=== PATIENT | female | born 1970 | race Caucasian/White ===

== ENCOUNTER 2023-10-23 17:13 | Inpatient (IN) | payer BC, OTHER ==
[~2023-10-23] VITALS: Ht 160 cm; Wt 83.5 kg
[~2023-10-23 17:13] MED LIST: ALLEGRA D; AMOX-423 PO; ASPI-524 PO; ATEN50TA PO; HYDR-3919 PO; LOSA-415 PO; TRIA1CAP53 PO
[2023-10-23 17:24] VITALS: BP_SYST 127; PULSE 74; RESP 18; TEMP 98.3; O2SAT 98
[2023-10-23 19:43] LABS: BASOPHILS % (AUTO) 0.5 % (0.0-2.0); EOSINOPHILS # (AUTO) 0.2 K/uL (0.0-0.4); EOSINOPHILS % (AUTO) 2.4 % (0.0-4.0); HEMATOCRIT 36.3 % (36-48); HEMOGLOBIN 12.8 g/dL (12.0-16.0); LYMPHOCYTES # (AUTO) 3.1 K/uL (1.0-5.5); LYMPHOCYTES % (AUTO) 30.4 % (20.5-51.5); MEAN CORPUSCULAR HEMOGLOBIN 32 pg (27-31); MEAN CORPUSCULAR HGB CONC 35 % (32-36); MEAN CORPUSCULAR VOLUME 90 fL (79.0-98.0); MONOCYTES # (AUTO) 0.9 K/uL (0.0-1.0); MONOCYTES % (AUTO) 9.3 % (1.7-9.3); NEUTROPHILS # (AUTO) 5.9 K/uL (1.8-7.7); NEUTROPHILS % (AUTO) 57.4 % (40.0-70.0); PLATELET COUNT (AUTO) 278 K/uL (130-430); RED BLOOD CELL COUNT(AUTO) 4.02 MIL/uL (4.2-6.2); RED CELL DISTRIBUTION WIDTH 12.5 % (9.0-15.0); WHITE BLOOD COUNT (AUTO) 10.2 K/uL (4.8-10.8)
[2023-10-23 20:07] LABS: ALBUMIN 3.8 g/dL (3.4-4.8); BILIRUBIN,DIRECT 0.2 mg/dL (0.0-0.3); CALCIUM 9.3 mg/dL (8.4-11.0); CREATININE 2.56 mg/dL (0.55-1.30); POTASSIUM 3.6 mmol/L (3.5-5.1); TOTAL BILIRUBIN 0.6 mg/dL (0.0-1.0); TOTAL PROTEIN, SERUM 7.1 g/dL (6.4-8.3)
[2023-10-23 20:58] LABS: BILIRUBIN,URINE NEGATIVE (NEGATIVE); BLOOD, URINE NEGATIVE (NEGATIVE); CLARITY/URINE CLEAR (CLEAR); COLOR,URINE YELLOW (YELLOW); GLUCOSE,URINE NEGATIVE (NEGATIVE); KETONES,URINE TRACE (NEGATIVE); LEUKOCYTE ESTERASE ,URINE TRACE (NEGATIVE); NITRITE, URINE NEGATIVE (NEGATIVE); PROTEIN URINE NEGATIVE (NEGATIVE); UROBILINOGEN,URINE 0.2 (0.2-1.0)
[2023-10-23 21:16] LABS: BACTERIA,URINE FEW /HPF (None Seen); RBC,URINE NONE SEEN /HPF (0-3)
[2023-10-23 21:17] LABS: MUCUS,URINE None Seen /LPF (None Seen)
[2023-10-23] MEDS: NACL 0.9% 1,000 ML IV ONE (21:45)
[2023-10-23] MEDS: NS 500 ML IV ONE (22:00)
[2023-10-23] MEDS ORDERED: ACETAMINOPHEN 325 MG TABLET PO PRN (22:45)
[2023-10-23] MEDS: NACL 0.9% 1,000 ML IV SCH (23:26)
[2023-10-23] MEDS: NACL 0.9% 1,000 ML IV STA (23:26)
[2023-10-24 04:35] LABS: BASOPHILS # (AUTO) 0.1 K/uL (0.0-0.2); BASOPHILS % (AUTO) 0.6 % (0.0-2.0); EOSINOPHILS # (AUTO) 0.2 K/uL (0.0-0.4); EOSINOPHILS % (AUTO) 2.5 % (0.0-4.0); HEMATOCRIT 33.3 % (36-48); HEMOGLOBIN 11.5 g/dL (12.0-16.0); LYMPHOCYTES # (AUTO) 2.6 K/uL (1.0-5.5); LYMPHOCYTES % (AUTO) 29.4 % (20.5-51.5); MEAN CORPUSCULAR HEMOGLOBIN 31 pg (27-31); MEAN CORPUSCULAR HGB CONC 34 % (32-36); MEAN CORPUSCULAR VOLUME 90 fL (79.0-98.0); MONOCYTES # (AUTO) 0.6 K/uL (0.0-1.0); MONOCYTES % (AUTO) 6.6 % (1.7-9.3); NEUTROPHILS # (AUTO) 5.4 K/uL (1.8-7.7); NEUTROPHILS % (AUTO) 60.9 % (40.0-70.0); PLATELET COUNT (AUTO) 221 K/uL (130-430); RED BLOOD CELL COUNT(AUTO) 3.71 MIL/uL (4.2-6.2); RED CELL DISTRIBUTION WIDTH 12.3 % (9.0-15.0); WHITE BLOOD COUNT (AUTO) 8.8 K/uL (4.8-10.8)
[2023-10-24 05:01] LABS: ALBUMIN 3.1 g/dL (3.4-4.8); CALCIUM 8.1 mg/dL (8.4-11.0); CREATININE 1.89 mg/dL (0.55-1.30); PHOSPHORUS 3.5 mg/dL (2.7-4.5); TOTAL BILIRUBIN 0.6 mg/dL (0.0-1.0); TOTAL PROTEIN, SERUM 6.1 g/dL (6.4-8.3)
[2023-10-24 06:00] LABS: POTASSIUM 2.9 mmol/L (3.5-5.1)
[2023-10-24] MEDS ORDERED: METO-306 PO (07:47)
[2023-10-24] MEDS ORDERED: LEVO25TA7 PO (07:47)
[2023-10-24] MEDS ORDERED: LEVO137T2 PO (07:47)
[2023-10-24] MEDS ORDERED: ONDA-8 PO (07:47)
[2023-10-24] MEDS ORDERED: TRIA1CAP88 PO (07:47)
[2023-10-24] MEDS ORDERED: LOSA100T24 PO (07:47)
[2023-10-24] MEDS: POTASSIUM CHLORIDE 20 MEQ TABLET.ER PO ONE (11:17)
[2023-10-24] MEDS ORDERED: POTASSIUM CHLORIDE 20 MEQ TABLET.ER ONE (11:24)
[2023-10-24] MEDS: cloNIDine HCL 0.1 MG TABLET PO PRN (12:02)
[2023-10-24 17:47] VITALS: BP_SYST 142; PULSE 71; RESP 18; TEMP 97.6
[2023-10-24 20:00] VITALS: BP_SYST 134; PULSE 74; RESP 18; TEMP 97.1; O2SAT 99
[2023-10-25] VITALS: BP_SYST 141; PULSE 85; RESP 16; TEMP 97.6; O2SAT 99
[2023-10-25 06:51] LABS: BASOPHILS # (AUTO) 0.1 K/uL (0.0-0.2); BASOPHILS % (AUTO) 1.1 % (0.0-2.0); EOSINOPHILS # (AUTO) 0.2 K/uL (0.0-0.4); HEMATOCRIT 32.2 % (36-48); HEMOGLOBIN 11.2 g/dL (12.0-16.0); LYMPHOCYTES # (AUTO) 2.3 K/uL (1.0-5.5); LYMPHOCYTES % (AUTO) 38.1 % (20.5-51.5); MEAN CORPUSCULAR HEMOGLOBIN 32 pg (27-31); MEAN CORPUSCULAR HGB CONC 35 % (32-36); MEAN CORPUSCULAR VOLUME 92 fL (79.0-98.0); MONOCYTES # (AUTO) 0.5 K/uL (0.0-1.0); MONOCYTES % (AUTO) 8.4 % (1.7-9.3); NEUTROPHILS % (AUTO) 49.4 % (40.0-70.0); PLATELET COUNT (AUTO) 229 K/uL (130-430); RED BLOOD CELL COUNT(AUTO) 3.52 MIL/uL (4.2-6.2); RED CELL DISTRIBUTION WIDTH 12.3 % (9.0-15.0); WHITE BLOOD COUNT (AUTO) 6.1 K/uL (4.8-10.8)
[2023-10-25 07:56] LABS: ALBUMIN 2.8 g/dL (3.4-4.8); CALCIUM 8.4 mg/dL (8.4-11.0); CREATININE 0.99 mg/dL (0.55-1.30); POTASSIUM 3.4 mmol/L (3.5-5.1); TOTAL BILIRUBIN 0.5 mg/dL (0.0-1.0); TOTAL PROTEIN, SERUM 5.7 g/dL (6.4-8.3)
[2023-10-25 08:00] VITALS: BP_SYST 165; PULSE 88; RESP 16; TEMP 97.5; O2SAT 99
[2023-10-25 09:15] VITALS: O2SAT 99
[2023-10-25 12:35] VITALS: BP_SYST 165; PULSE 84; RESP 16; TEMP 98.7; O2SAT 99
[2023-10-25] MEDS ORDERED: NALOXONE HCL 0.4 MG/ML AMP (NARCAN) IVP PRN (16:30)
[2023-10-25] MEDS ORDERED: LEVOTHYROXINE SODIUM 0.137 MG TABLET PO SCH (16:30)
[2023-10-25] MEDS ORDERED: HYDROcodone/ACETAMIN 5-325 MG TAB (NORCO/ VICODIN) PO PRN (16:30)
[2023-10-25] MEDS ORDERED: ATENOLOL 50 MG TABLET (TENORMIN) PO SCH (16:30)
[2023-10-25 16:51] VITALS: BP_SYST 171; PULSE 77; RESP 16; TEMP 98.3; O2SAT 99
[2023-10-25 17:30] VITALS: BP_SYST 156; PULSE 77; RESP 16; TEMP 98.3
[2023-10-25] MEDS: LEVOTHYROXINE SODIUM 0.137 MG TABLET PO ONE (17:58)
[2023-10-25] MEDS: POTASSIUM CHLORIDE 20 MEQ TABLET.ER PO ONE (17:59)
[2023-10-25] MEDS: LOSARTAN POTASSIUM 50 MG TABLET (COZAAR) PO ONE (18:03)
[2023-10-25] MEDS: METOPROLOL SUCCINATE 50 MG TAB.SR.24H (TOPROL XL) PO ONE (18:03)
[2023-10-26] MEDS ORDERED: LOSARTAN POTASSIUM 50 MG TABLET (COZAAR) PO SCH (09:00)
[2023-10-26] MEDS ORDERED: LEVOTHYROXINE SODIUM 0.137 MG TABLET PO SCH (09:00)
[2023-10-26] MEDS ORDERED: LEVOTHYROXINE SODIUM 0.025 MG TABLET PO SCH (09:00)
[2023-10-26] MEDS ORDERED: METOPROLOL SUCCINATE 50 MG TAB.SR.24H (TOPROL XL) PO SCH ×2 (09:00)
[2023-10-26] MEDS ORDERED: ASPIRIN 81 MG TAB.CHEW PO SCH (09:00)
== END 2023-10-25 23:59 | disposition home or self-care (01) | DRG 640 ==
LOC: SED 17:13 → SMU 21:41
PROVIDERS: ADMIT Internal Medicine; ATTEND Internal Medicine
DX: E86.0 Dehydration (principal); N17.0 Acute kidney failure with tubular necrosis; E44.1 Mild protein-calorie malnutrition; I10 Essential (primary) hypertension; E87.6 Hypokalemia; E66.9 Obesity, unspecified; Z68.32 Body mass index [BMI] 32.0-32.9, adult; Z79.899 Other long term (current) drug therapy; Z87.891 Personal history of nicotine dependence; Z88.8 Allergy status to other drugs, medicaments and biological substances; Z85.850 Personal history of malignant neoplasm of thyroid
CPT/HCPCS: 36415; 76770; 80048; 80053; 80076; 81000; 81001; 81015; 82550; 83037; 83690; 83735; 84100; 85025; 99285